=== PATIENT | female | born 1990 | race Hispanic/Latino ===

== ENCOUNTER 2023-12-21 22:21 | Emergency (ER) | payer SELFPAY ==
[~2023-12-21] VITALS: Ht 154.9 cm; Wt 96.6 kg
[2023-12-21 22:36] VITALS: PULSE 87; RESP 18; TEMP 98
[2023-12-21] MEDS ORDERED: TRAMADOL HCL 50 MG TAB ONE (23:09)
[2023-12-21] MEDS: KETOROLAC TROMETHAMINE 30 MG/ML VIAL IM STA (23:13)
[2023-12-21] MEDS: TRAMADOL HCL 50 MG TAB PO ONE (23:13)
[2023-12-22] MEDS ORDERED: CYCLOBENZAPRINE5 MG PO (00:50)
[2023-12-22] MEDS ORDERED: KETOROLAC TROME10 MG PO (00:50)
[2023-12-22 02:20] VITALS: BP 127/84; PULSE 71; RESP 18; TEMP 98.2; O2SAT 100
== END 2023-12-22 01:20 | disposition home or self-care (01) ==
LOC: FSED 22:24
DX: M54.50 Low back pain, unspecified (principal); M51.86 Other intervertebral disc disorders, lumbar region
CPT/HCPCS: 72131; 81025; 99284; J1885